=== PATIENT | male | born 1990 | race Caucasian/White ===

== ENCOUNTER 2022-01-05 17:48 | Observation (INO) ==
[2022-01-05] MEDS ORDERED: SODIUM CHLORIDE 0.9% 1,000 ML IV STA (20:13)
[2022-01-05] MEDS ORDERED: MORPHINE 2 MG/1 ML SYRINGE IV STA (20:13)
[2022-01-05] MEDS ORDERED: ONDANSETRON 4 MG/2 ML VIAL IV ONE (20:13)
[2022-01-05] MEDS ORDERED: ceFAZolin 2,000 MG/50 ML DUPLEX IV ONE (20:13)
[2022-01-05] MEDS ORDERED: MORPHINE 2 MG/1 ML SYRINGE ONE (20:16)
[2022-01-05] MEDS ORDERED: ceFAZolin 1,000 MG VIAL ONE (20:16)
[2022-01-05] MEDS ORDERED: ceFAZolin 2,000 MG in SODIUM CHLORIDE 0.9% 100 ML IV ONE (20:30)
[2022-01-05 20:45] LABS: Basophils % 0.2 % (0.0-0.8); Eosinophils # 0.1 10*3/uL (0.0-0.87); Eosinophils % 0.3 % (0.00-10.9); Hemoglobin 14.6 GM/DL (14.0-18.0); Immature Granulocytes % 0.6 %; Lymphocytes # 1.3 10*3/uL (1.4-4.0); Mean Corpuscular HGB Conc 33.2 GM/DL (32-36); Mean Corpuscular Volume 82.9 FL (87-102); Mean Platelet Volume 12.3 FL (9.6-12.0); Monocytes # 0.9 10*3/uL (0.11-0.8); Monocytes % 5.1 % (1.7-12.7); Neutrophils % 85.8 % (38.7-73.9); Platelet Count 164 T/CUMM (130-400); Red Blood Count 5.31 MC/CUMM (3.8-5.5); Red Cell Distribution Width 12.6 % (9.3-17.3); White Blood Count 16.7 T/CUMM (4-12)
[2022-01-05] MEDS ORDERED: ONDANSETRON 4 MG/2 ML VIAL IV PRN (20:55)
[2022-01-05] MEDS ORDERED: MORPHINE 2 MG/1 ML SYRINGE IV PRN (20:55)
[2022-01-05] MEDS ORDERED: ACETAMINOPHEN 325 MG TABLET PO PRN (20:55)
[2022-01-05 21:05] LABS: Bilirubin,Total 0.7 MG/DL (0.20-1.00); Calcium 9.2 MG/DL (8.5-10.1); Osmolality,Calculated 272.8 MOS/KG (273-304); Potassium 3.6 MMOL/L (3.5-5.1); Total Protein 7.9 G/DL (6.4-8.2)
[2022-01-05 21:16] LABS: Mucus,Urine Occasional /LPF (Occasional); RBC,Urine 2 /HPF (0-4); Squamous Epithelial Cell,Urine Occasional /HPF (0-10); Urine Appearance Clear (Clear); Urine Color Yellow (Yellow)
[2022-01-05 21:17] LABS: Bilirubin,Urine Negative (Negative); Blood, Urine Negative (Negative); Glucose,Urine (UA) Negative (Negative); Ketones,Urine Negative (Negative); Nitrite,Urine Negative (Negative); Protein,Urine Negative (Negative); Urine Urobilinogen 0.2 eU/dL (<2.0)
[2022-01-05] MEDS: DEXTROSE 5% NACL 0.45% 1,000 ML IV SCH (22:13)
[2022-01-05] MEDS: PIPERACILLIN/TAZOBACTAM 3,375 MG in SODIUM CHLORIDE 0.9% 100 ML IV SCH (22:13)
[2022-01-06 03:55] LABS: Basophils % 0.2 % (0.0-0.8); Eosinophils # 0.1 10*3/uL (0.0-0.87); Eosinophils % 0.9 % (0.00-10.9); Hematocrit 38.4 VOL% (42.0-52.0); Hemoglobin 12.7 GM/DL (14.0-18.0); Immature Granulocytes % 0.4 %; Immature Granulocytes Absolute 0.05 #; Lymphocytes # 2.4 10*3/uL (1.4-4.0); Lymphocytes % 18.6 % (21.2-54.2); Mean Corpuscular HGB Conc 33.1 GM/DL (32-36); Mean Corpuscular Volume 83.5 FL (87-102); Mean Platelet Volume 11.9 FL (9.6-12.0); Monocytes # 0.9 10*3/uL (0.11-0.8); Monocytes % 6.6 % (1.7-12.7); Neutrophils % 73.3 % (38.7-73.9); Platelet Count 158 T/CUMM (130-400); Red Cell Distribution Width 12.6 % (9.3-17.3); White Blood Count 12.8 T/CUMM (4-12)
[2022-01-06 04:14] LABS: Calcium 8.1 MG/DL (8.5-10.1); Osmolality,Calculated 278.4 MOS/KG (273-304); Potassium 3.3 MMOL/L (3.5-5.1)
[2022-01-06] MEDS: PIPERACILLIN/TAZOBACTAM 3,375 MG in SODIUM CHLORIDE 0.9% 100 ML IV SCH (06:00)
[2022-01-06] MEDS ORDERED: TISSUE ADHESIVE 1 EACH APPLICATOR TOP ONE (06:18)
[2022-01-06] MEDS ORDERED: LIDOCAINE 1%/EPI INJ 20 ML VIAL ONE (06:18)
[2022-01-06] MEDS ORDERED: BUPIVACAINE MPF 0.25% 10 ML VIAL ONE (06:18)
[2022-01-06] MEDS ORDERED: PROMETHAZINE INJ 25 MG in SODIUM CHLORIDE 0.9% 50 ML IV PRN (06:39)
[2022-01-06] MEDS ORDERED: diphenhydrAMINE 50 MG/1 ML VIAL IV PRN (06:39)
[2022-01-06] MEDS ORDERED: HYDROmorphone 1 MG/1 ML SYRINGE IV PRN (06:39)
[2022-01-06] MEDS ORDERED: ONDANSETRON 4 MG/2 ML VIAL IV PRN (06:39)
[2022-01-06] MEDS ORDERED: MIDAZOLAM 2 MG/2 ML VIAL ONE (06:45)
[2022-01-06] MEDS ORDERED: ROCURONIUM 50 MG/5 ML VIAL IV ONE (06:45)
[2022-01-06] MEDS ORDERED: fentaNYL 100 MCG/2 ML VIAL ONE (06:45)
[2022-01-06] MEDS ORDERED: SEVOFLURANE 1 UNIT/15 MINUTE INH ONE (06:45)
[2022-01-06] MEDS ORDERED: propofoL 200 MG/20 ML VIAL IV ONE (06:45)
[2022-01-06] MEDS ORDERED: LIDOCAINE 2% 5 ML VIAL ONE (06:45)
[2022-01-06] MEDS ORDERED: DEXAMETHASONE 4 MG/1 ML VIAL ONE (06:45)
[2022-01-06] MEDS ORDERED: KETOROLAC 30 MG/1 ML VIAL ONE (06:45)
[2022-01-06] MEDS ORDERED: NEOSTIGMINE 10 MG/10 ML VIAL ONE (08:30)
[2022-01-06] MEDS ORDERED: GLYCOPYRROLATE 0.4 MG/2 ML VIAL ONE (08:30)
[2022-01-06] MEDS ORDERED: PHENYLEPHRINE 1 MG/10 ML SYRINGE IV ONE (08:30)
[2022-01-06] MEDS: MEPERIDINE 25 MG/1 ML VIAL IV PRN ×2 (09:00→09:20)
[2022-01-06] MEDS ORDERED: PANTOPRAZOLE 40 MG VIAL IV SCH (09:00)
[2022-01-06] MEDS ORDERED: PROMETHAZINE 25 MG/1 ML VIAL ONE (09:11)
[2022-01-06] MEDS: DEXTROSE 5% NACL 0.45% 1,000 ML IV SCH (09:29)
[2022-01-06 13:16] VITALS: BP 104/67
== END 2022-01-06 13:40 | disposition home or self-care (01) ==
LOC: N.EDINP 17:48 → N.ED 17:48 → N.EDINP 01-06 06:58 → N.3E 01-06 08:59
PROVIDERS: ADMIT Surgery; ATTEND Surgery